=== PATIENT | female | born 1955 ===

== ENCOUNTER 2021-06-27 08:00 | Outpatient (CLI) | payer OTHER ==
--- NOTE | 2021-06-27 15:12 | XRAY Report ---
PROCEDURE: Hand 3 View LT INDICATIONS: PAIN IN LEFT FINGER TECHNIQUE: 3 views of the hand(s) acquired. COMPARISON: None FINDINGS: Bones: No fractures or dislocations. No suspicious bony lesions. Joint space narrowing and periart icular osteophyte formation at the first metacarpal joint, as well as the interphalangeal joints of t he digits. Soft tissues: No suspicious soft tissue calcifications. IMPRESSION: Osteoarthritis. No acute fracture. No osseous lesion. If symptoms and/or clinical suspicion for patho logy continue, further assessment with repeat plain films, or advanced imaging (e.g., CT, MRI, or bon e scan) is recommended for further assessment. Reviewed by: Fátima Schroeder MD on 06/27/2021 3:10 PM PST Approved by: Fátima Schroeder MD on 06/27/2021 3:10 PM PST Station ID: [id number]
== END 2021-06-27 23:59 | disposition home or self-care (01) ==
LOC: DI.S 08:00
PROVIDERS: ATTEND Physician Assistant Medical
DX: M19.042 Primary osteoarthritis, left hand (principal)

== ENCOUNTER 2023-12-02 08:00 | Outpatient (CLI) | payer OTHER ==
--- NOTE | 2023-12-02 13:46 | XRAY Report ---
PROCEDURE: Ankle 3+V LT INDICATIONS: SPRAIN OF LEFT ANKLE TECHNIQUE: 3 views of the ankle were acquired. COMPARISON: X-ray foot 12/02/2023 FINDINGS: Bones: Avulsion fracture is present at the distal aspect of the medial malleolus. Soft tissues: Ankle edema is present most prominent medially. Achilles tendon appears normal. IMPRESSION: Distal medial malleolar avulsion fracture. Reviewed by: Danielle Murillo MD on 12/02/2023 1:45 PM PDT Approved by: Danielle Murillo MD on 12/02/2023 1:45 PM PDT Station ID: [id number]
--- NOTE | 2023-12-02 13:47 | XRAY Report ---
PROCEDURE: Foot 3+V LT INDICATIONS: SPRAIN OF LEFT FOOT TECHNIQUE: 3 views of the foot were acquired. COMPARISON: X-ray ankle 12/02/2023 FINDINGS: Bones: Distal medial malleolus or avulsion fracture better seen on x-ray ankle report of 12/02/2023. N o suspicious bony lesions. Soft tissues: No tibiotalar joint effusion. Achilles tendon appears normal. IMPRESSION: Distal medial malleolus avulsion fracture better appreciated on x-ray ankle report 12/02/2023. Reviewed by: Danielle Murillo MD on 12/02/2023 1:45 PM PDT Approved by: Danielle Murillo MD on 12/02/2023 1:45 PM PDT Station ID: [id number]
== END 2023-12-02 23:59 | disposition home or self-care (01) ==
LOC: DI.S 08:00
PROVIDERS: ATTEND Emergency Medicine
DX: S82.52XA Displaced fracture of medial malleolus of left tibia, initial encounter for closed fracture (principal)

== ENCOUNTER 2023-12-07 11:15 | Outpatient (CLI) | payer OTHER ==
--- NOTE | 2023-12-08 02:07 | XRAY Report ---
PROCEDURE: Ankle 3+V LT INDICATIONS: ANKLE PAIN LEFT TECHNIQUE: 3 views of the ankle were acquired. COMPARISON: Left ankle radiographs 11/24/2023 FINDINGS: Bones: Small minimally displaced avulsion fracture again seen at the median malleolar tip. No new os seous fracture identified. Soft tissues: Soft tissue edema seen surrounding the ankle. IMPRESSION: Minimally displaced avulsion fracture at the tip of the medial malleolus does not appear significantl y changed. Reviewed by: Ba Barnhart MD on 12/08/2023 2:06 AM PDT Approved by: Ba Barnhart MD on 12/08/2023 2:06 AM PDT Station ID: [id number]
== END 2023-12-07 11:16 | disposition home or self-care (01) ==
LOC: DI 11:15
PROVIDERS: ATTEND Physician Assistant Surgical
DX: S82.52XA Displaced fracture of medial malleolus of left tibia, initial encounter for closed fracture (principal)

== ENCOUNTER 2023-12-07 11:36 | Emergency (ER) | payer OTHER ==
--- NOTE | 2023-12-07 12:21 | ED Physician Documentation ---
PD HPI LOWER EXT INJURY - Stated complaint Stated Complaint: MED REFILL - Chief complaint Chief Complaint: General - History obtained from History obtained from: Patient - History of Present Illness PD HPI LOW EXT INJURY LOCATION: Left, Ankle Type of injury: Fall, Twist Timing - onset: How many weeks ago (1) Timing - details: Abrupt onset, Still present (she twisted ankle with medial malleolar fracture a week ago, in boot orthosis. Has ortho appt this cmoing week. Was Rx some pain meds which hep but needs more. 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 - Present Medications Home Medications: Ambulatory Orders Medication Instructions Recorded Confirmed HYDROcod/ACETAM 5/325 [Boody 5/325] 1 ea PO Q6H PRN #20 tablet 12/07/23 HYDROcod/ACETAM 5/325 [Boody 5/325] 1 tablet PO Q6H PRN 12/07/23 12/07/23 Ibuprofen [Advil] 600 mg PO Q8HR PRN 12/07/23 12/07/23 Meloxicam [Mobic] 7.5 mg PO BID 10 Days #20 tablet 12/07/23 - Allergies Allergies/Adverse Reactions: Allergies Allergy/AdvReac Type Severity Reaction Status Date / Time No Known Drug Allergies Allergy Verified 12/07/23 11:58 - Social History Does the pt smoke?: No Smoking Status: Former smoker ETOH Use: Wine Does the pt have substance abuse?: No - Immunizations Immunizations are current?: Yes - POLST Patient has POLST: No PD ED PE NORMAL - Vitals Vital signs reviewed: Yes - General General: Alert and oriented X 3, Well developed/nourished - Derm Derm: Normal color, Warm and dry - Extremities Extremities: Other (boot orthsis is on, and I left it on. Proximal to that there is some mild tenderness in lateral hamstring but no tender in popliteal, medial thigh, nor calf muscle itself. Seems muscular from walking different. Does not seem clinically DVT. ) Results - Vitals Vitals: Vital Signs - 24 hr 12/07/23 13:01 Temperature 36.8 C Heart Rate 72 Respiratory 16 Rate Blood Pressure 138/72 H O2 Saturation 100 PD Medical Decision Making - ED course Complexity details: reviewed old records (I looked at xray from clinic and is medial malleolar avulsion fx distal. No disruption of mortis. The boot orthosis seems reasonable. ) Departure - Departure Disposition: Home, Self Care Clinical Impression: Ankle fracture, Ankle pain Condition: Stable Record reviewed to determine appropriate education?: Yes Prescriptions: Meloxicam [Mobic] 7.5 mg PO BID 10 Days #20 tablet HYDROcod/ACETAM 5/325 [Boody 5/325] 1 ea PO Q6H PRN #20 tablet PRN Reason: Pain Comments: Continue with your current treatment with the boot orthosis. Try to have a shoe on the other foot that has a comparable height so you do not have tipping of the hips and because of back pain with the boot splint. I would suggest some regular anti-inflammatories. You have been using Advil and that is a little bit shorter half-life so take it more often. I wrote for 1 called meloxicam which is just twice a day so we will have hopefully will more consistency with the effect. To that acetaminophen/Tylenol 500 to 650 mg 4 times daily as needed for pain or hydrocodone/acetaminophen if needed for worse pain. I sent your prescription to the [facility] in [place]. Follow-up with orthopedics as scheduled. Forms: PCP List Discharge Date/Time: 12/07/23 13:01
[2023-12-07] MEDS: NAPROXEN 250 MG TABLET PO STA (12:58)
[2023-12-07] MEDS: HYDROcod/ACETAM 5/325 MG TABLET PO STA (12:58)
[2023-12-07 13:02] VITALS: BP 138/72; O2SAT 100
== END 2023-12-07 13:01 | disposition home or self-care (01) ==
LOC: ED 11:36
DX: Z76.0 Encounter for issue of repeat prescription (principal); M25.572 Pain in left ankle and joints of left foot; S82.52XD Displaced fracture of medial malleolus of left tibia, subsequent encounter for closed fracture with routine healing; X50.1XXD Overexertion from prolonged static or awkward postures, subsequent encounter; Z87.891 Personal history of nicotine dependence; S82.52XA Displaced fracture of medial malleolus of left tibia, initial encounter for closed fracture
CPT/HCPCS: 73610; 99283; A9270

== ENCOUNTER 2024-01-15 14:19 | Outpatient (CLI) | payer OTHER ==
--- NOTE | 2024-01-15 14:57 | XRAY Report ---
PROCEDURE: Ankle 3+V LT INDICATIONS: NONDISPLACED FX OF MEDIAL MALLEOLUS LEFT TIBIA TECHNIQUE: 3 views of the ankle were acquired. COMPARISON: December 07, 2023 FINDINGS: Bones: Mildly displaced fracture of the medial malleolus tip is similar to prior. The ankle mortise a ppears intact. Prominent Stieda process appears similar. Mild midfoot degenerative changes. Soft tissues: No suspicious calcifications. IMPRESSION: Similar medial malleolus avulsion fracture. Reviewed by: Jose M Pablo MD on 01/15/2024 2:56 PM PDT Approved by: Jose M Pablo MD on 01/15/2024 2:56 PM PDT Station ID: [id number]
== END 2024-01-15 14:20 | disposition home or self-care (01) ==
LOC: DI 14:19
PROVIDERS: ATTEND Physician Assistant Surgical
DX: S82.55XD Nondisplaced fracture of medial malleolus of left tibia, subsequent encounter for closed fracture with routine healing (principal)